=== PATIENT | female | born 1985 | race African-American/Black ===

== ENCOUNTER 2017-09-15 01:20 | Emergency (ER) | payer MEDICAID ==
[~2017-09-15] VITALS: Ht 165.1 cm; Wt 89.3 kg
[~2017-09-15 01:20] MED LIST: DOXY100T PO
[2017-09-15 01:22] VITALS: BP 128/82; PULSE 71; RESP 16; TEMP 97.9; O2SAT 97
[2017-09-15] MEDS ORDERED: POLY10O EACH EYE (02:00)
[2017-09-15] MEDS ORDERED: PENI500T PO (02:00)
[2017-09-15] MEDS ORDERED: PROPARACAINE HCL 0.5% OPHT SOLN 15 ML BTL RIGHT EYE ONE (02:00)
--- NOTE | 2017-09-15 02:03 | PD ---
HPI Chief Complaint: Eye Problems/Injury Time Seen by Provider: 01:59 Travel History International Travel<30 days: No Contact w/Intl Traveler<30days: No Traveled to known affect area: No History of Present Illness HPI 32-year-old female here with bilateral eye redness, irritation, drainage. Symptoms started today. Symptoms are mild, aggravated by opening the eyes. Denies matting or itching. She does not wear contacts. In addition the patient has had dental pain for the past 3 days. Pain localized to left mandibular molars. No other complaints. PFSH Past Medical History Medical History: Denies Significant Hx Diminished Hearing: No Gastrointestinal Disorders: Yes (GASTRITIS) Immunizations Current: No Tetanus Vaccination: > 5 Years Influenza Vaccination: No ?: Not LMP: 09/01/17 : 1 Para: 1 Miscarriage: 1 Past Surgical History Surgical History: No Previous Surgery Social History Alcohol Use: Yes (occ) Tobacco Use: No Substance Use: Yes (MARIJUANA ) Allergies-Medications (Allergen,Severity, Reaction): Coded Allergies: promethazine (Verified Allergy, Severe, N/V -HIVES, 09/15/17) ranitidine (Verified Allergy, Unknown, 09/15/17) pt says she is not allergic to this med Reported Meds & Prescriptions Reported Meds & Active Scripts Active Penicillin V Potassium 500 Mg Tab 500 Mg PO Q8H 7 Days Polytrim Opth Drops (Polymyxin/Trimethoprim Sulfate) 10,000-0.1 Unit/Ml-% Soln 1 Drop EACH EYE Q6HR 7 Days Review of Systems Except as stated in HPI: all other systems reviewed are Neg Physical Exam Narrative GENERAL: Well-developed well-nourished female in no acute distress SKIN: Warm and dry. HEAD: Atraumatic. Normocephalic. EYES: Pupils equal and round reactive to light extraocular muscles are intact bilateral conjunctival injection is present. Wood's lamp is unremarkable with no area of increased corneal uptake and no foreign body, negative Leslie. No scleral icterus. No injection or drainage. ENT: No nasal bleeding or discharge. Mucous membranes pink and moist. Mandibular third molar is decayed and tender to palpation. NECK: Trachea midline. No JVD. CARDIOVASCULAR: Regular rate and rhythm. No murmur appreciated. RESPIRATORY: No accessory muscle use. Clear to auscultation. Breath sounds equal bilaterally. Data Data Last Documented VS Vital Signs Date Time Temp Pulse Resp B/P (MAP) Pulse Ox O2 Delivery O2 Flow Rate FiO2 09/15/17 01:22 97.9 71 16 128/82 (97) 97 Room Air Orders Orders Proparacaine 0.5% Opth Soln (Alcaine 0.5 (09/15/17 02:00) Ed Discharge Order (09/15/17 02:00) MDM Medical Decision Making Medical Screen Exam Complete: Yes Emergency Medical Condition: Yes Medical Record Reviewed: Yes Differential Diagnosis Conjunctivitis, foreign body bilaterally, bilateral corneal abrasion, bilateral iritis, bilateral endophthalmitis Narrative Course 32-year-old female here with 1 day history of bilateral eye redness and irritation and drainage. Wood's lamp is normal. Bilateral conjunctivitis is present. In addition the patient has dental decay localized to left mandibular third molar. She is being discharged with Polytrim and penicillin. Diagnosis Primary Impression: Dental caries Additional Impression: Conjunctivitis Additional Instructions: Medication as prescribed. Follow-up with primary care physician as needed and return for any emergent medical conditions. Med/Other Pt SpecificInfo: Prescription(s) given Scripts Penicillin V Potassium (Penicillin V Potassium) 500 Mg Tab 500 MG PO Q8H for Infection for 7 Days, #21 TAB 0 Refills Prov: Ross Barrios MD 09/15/17 Polymyxin B-Trimethoprim Opth Drops (Polytrim Opth Drops) 10,000-0.1 Unit/Ml-% Soln 1 DROP EACH EYE Q6HR for Mgmt Bacterial Infection for 7 Days, #1 BOTTLE 0 Refills Prov: Ross Barrios MD 09/15/17 Disposition: 01 DISCHARGE HOME Condition: Stable Ba Puga Sep 15, 2017 02:03
== END 2017-09-15 02:28 | disposition home or self-care (01) ==
LOC: NEPD 01:20
DX: K02.9 Dental caries, unspecified (principal); H10.9 Unspecified conjunctivitis; F12.90 Cannabis use, unspecified, uncomplicated; Z88.8 Allergy status to other drugs, medicaments and biological substances; Z87.19 Personal history of other diseases of the digestive system
CPT/HCPCS: 99284